=== PATIENT | male | born 1950 | race African-American/Black ===

== ENCOUNTER 2017-02-05 17:02 | Emergency (ER) | payer MEDICARE, MEDICAID ==
[~2017-02-05] VITALS: Ht 172.7 cm; Wt 66.0 kg
[2017-02-05] MEDS ORDERED: ASPIRIN 81 MG TABLET CHEW PO ONE (18:00)
[2017-02-05] MEDS ORDERED: ASPIRIN 81 MG TABLET CHEW ONE (18:09)
[2017-02-05 18:21] LABS: HEMATOCRIT 39.7 % (39.2-51.8); HEMOGLOBIN 12.9 g/dL (13.7-18.0); WHITE BLOOD COUNT 6.2 x10^3/uL (3.4-10)
[2017-02-05 18:39] LABS: BLOOD UREA NITROGEN 11 mg/dL (7-18)
[2017-02-05 18:40] LABS: ASPARTATE AMINO TRANSFERASE 24 U/L (15-37); IS PT STATUS REG ER OR PRE ER? YES
[2017-02-05 19:02] VITALS: BP 108/81
== END 2017-02-05 19:28 | disposition home or self-care (01) ==
LOC: ED 19:00
DX: I11.0 Hypertensive heart disease with heart failure (principal); I50.21 Acute systolic (congestive) heart failure; E78.5 Hyperlipidemia, unspecified; I25.2 Old myocardial infarction
CPT/HCPCS: 36415; 71010; 80053; 83880; 84484; 85025; 93005; 99285